=== PATIENT | female | born 1980 | race Caucasian/White ===

== ENCOUNTER 2017-01-19 10:14 | Emergency (ER) | payer MEDICAID ==
[~2017-01-19] VITALS: Ht 175.3 cm; Wt 96.8 kg
[~2017-01-19 10:14] MED LIST: BACL-19 PO; CYCL10TA50; HYDR-3138; IRON1TAB62 PO; PANT20TA3 PO; PHEN15CA PO; SULF1TAB24; TRAM50TA2; TRAM50TA2 PO
[2017-01-19 10:20] VITALS: BP 127/84
[2017-01-19] MEDS ORDERED: CARBAMIDE PEROXIDE EAR DROPS 6.5%, 15ML EACH EAR ONE (11:30)
== END 2017-01-19 12:12 | disposition home or self-care (01) ==
LOC: ED 12:03
DX: H66.001 Acute suppurative otitis media without spontaneous rupture of ear drum, right ear (principal); H60.91 Unspecified otitis externa, right ear; H61.21 Impacted cerumen, right ear
CPT/HCPCS: 99283

== ENCOUNTER 2017-06-21 15:00 | Emergency (ER) | payer MEDICAID ==
[~2017-06-21] VITALS: Ht 175.3 cm; Wt 97.0 kg
[~2017-06-21 15:00] MED LIST changes: -HYDR-3138; +HYDR-3237
[2017-06-21 15:05] VITALS: BP 128/84
[2017-06-21] MEDS ORDERED: DIAZEPAM 5 MG TABLET PO ONE (15:30)
[2017-06-21] MEDS ORDERED: HYDROmorphone 1 MG/ML, 1ML IM ONE (15:30)
[2017-06-21] MEDS ORDERED: HYDROmorphone 1 MG/ML, 1ML ONE (16:03)
[2017-06-21] MEDS ORDERED: DIAZEPAM 5 MG TABLET ONE (16:04)
== END 2017-06-21 16:42 | disposition home or self-care (01) ==
LOC: ED 16:34
DX: S39.012A Strain of muscle, fascia and tendon of lower back, initial encounter (principal); M54.42 Lumbago with sciatica, left side; M54.41 Lumbago with sciatica, right side; M47.896 Other spondylosis, lumbar region; F17.210 Nicotine dependence, cigarettes, uncomplicated; M41.9 Scoliosis, unspecified; W19.XXXA Unspecified fall, initial encounter; Y93.89 Activity, other specified; Y99.8 Other external cause status; Y92.89 Other specified places as the place of occurrence of the external cause
CPT/HCPCS: 72110; 96372; 99284; J1170

== ENCOUNTER 2018-03-07 10:51 | Emergency (ER) | payer MEDICAID ==
[~2018-03-07] VITALS: Ht 175.3 cm; Wt 101.0 kg
[~2018-03-07 10:51] MED LIST changes: -PHEN15CA PO; +PHEN15CA2 PO
[2018-03-07 11:27] VITALS: BP 124/80
== END 2018-03-07 11:32 | disposition home or self-care (01) ==
LOC: ED 11:14
DX: B00.1 Herpesviral vesicular dermatitis (principal); L01.01 Non-bullous impetigo; F17.200 Nicotine dependence, unspecified, uncomplicated
CPT/HCPCS: 99283

== ENCOUNTER 2019-03-20 07:42 | Emergency (ER) | payer MEDICAID ==
[~2019-03-20] VITALS: Ht 175.3 cm; Wt 99.6 kg
--- NOTE | 2019-03-20 08:24 | NUR ---
FIRST CONTACT WITH PT. PT REPORTS DIZZINESS FOR ABOUT A MONTH AND "DECIDED IT WAS TIME TO GET CHECKED OUT". JHONY. LORRI.
[2019-03-20] MEDS ORDERED: MECLIZINE CHEWABLE 25 MG TAB PO ONE (08:30)
[2019-03-20] MEDS ORDERED: ONDANSETRON ODT 4 MG PO ONE (08:30)
--- NOTE | 2019-03-20 08:41 | NUR ---
URINE REQUESTED FROM PT, SHE STATES SHE CAN'T URINATE RIGHT NOW. PT GIVEN UA CUP AND INSTRUCTIONS.
[2019-03-20] MEDS ORDERED: MECLIZINE CHEWABLE 25 MG TAB ONE (08:42)
[2019-03-20] MEDS ORDERED: ONDANSETRON ODT 4 MG ONE (08:42)
[2019-03-20 08:43] LABS: BASOPHILS % (AUTO) 1 % (0-1); EOSINOPHILS # (AUTO) 0.15 x10^3/uL (0-0.4); EOSINOPHILS % (AUTO) 2 % (1-7); LYMPHOCYTES # (AUTO) 2.41 x10^3/uL (1-3.4); LYMPHOCYTES % (AUTO) 32 % (22-44); MD NO; MEAN CORPUSCULAR HEMOGLOBIN 34.2 pg (27.0-34.8); MEAN CORPUSCULAR HGB CONC 32.9 g/dL (32.4-35.8); MEAN CORPUSCULAR VOLUME 103.9 fL (80-100); MEAN PLATELET VOLUME 9.5 fL (7.4-10.4); MONOCYTES # (AUTO) 0.42 x10^3/uL (0.2-0.8); MONOCYTES % (AUTO) 6 % (2-9); NEUTROPHILS # (AUTO) 4.47 x10^3/uL (1.8-6.8); NEUTROPHILS % (AUTO) 59 % (42-75); PLATELET COUNT 245 x10^3/uL (130-400); RED BLOOD COUNT 3.99 x10^6/uL (3.82-5.3); RED CELL DISTRIBUTION WIDTH 13.6 % (9.6-15.2)
--- NOTE | 2019-03-20 08:46 | NUR ---
Patient is resting comfortably in bed. Vital Signs within normal limits. Urine collected, small sample. Will walk to lab.
[2019-03-20 08:48] LABS: ALANINE AMINOTRANSFERASE 16 U/L (12-78); ALBUMIN 3.5 g/dL (3.4-5.0); ANION GAP 6 mmol/L (5-15); CALCIUM 8.7 mg/dL (8.5-10.1); CHLORIDE 109 mmol/L (98-107)
[2019-03-20 08:51] LABS: ALKALINE PHOSPHATASE 64 U/L (45-117); BILIRUBIN,TOTAL 0.6 mg/dL (0.2-1.0); CREATININE 0.99 mg/dL (0.55-1.02); TOTAL PROTEIN 6.9 g/dL (6.4-8.2)
[2019-03-20 09:17] LABS: HCG UR SG 1.027 (1.003-1.030)
--- NOTE | 2019-03-20 09:55 | NUR ---
PT DENIES ANY NEEDS. PT REQUESTS INFORMATION HOW TO GET MED RECORDS, INFO GIVEN.
[2019-03-20 09:56] LABS: MICROSCOPIC AUTO
[2019-03-20 10:02] LABS: CULTURE INDICATED? NO
[2019-03-20 10:38] VITALS: BP 110/67
--- NOTE | 2019-03-20 10:40 | NUR ---
DPatient/Caregiver given discharge instructions and they have confirmed that they understand the instructions. Patient ambulatory with steady gait.
== END 2019-03-20 10:39 | disposition home or self-care (01) ==
LOC: ED 08:43
DX: H81.399 Other peripheral vertigo, unspecified ear (principal); H81.10 Benign paroxysmal vertigo, unspecified ear; Z88.1 Allergy status to other antibiotic agents; Z88.8 Allergy status to other drugs, medicaments and biological substances
CPT/HCPCS: 36415; 80053; 81001; 81025; 85025; 93005; 99284; Q0162

== ENCOUNTER 2020-02-13 15:01 | Emergency (ER) | payer MEDICAID ==
[~2020-02-13] VITALS: Ht 175.3 cm; Wt 98.4 kg
[2020-02-13 15:11] VITALS: BP 124/68
--- NOTE | 2020-02-13 15:45 | NUR ---
EEG TECH: PT TO ROOM FROM [facility].
[2020-02-13] MEDS ORDERED: LIDOCAINE-MPF 1%, 5ML ONE (16:25)
[2020-02-13] MEDS ORDERED: LIDOCAINE-MPF 1%, 5ML INFIL ONE (16:30)
[2020-02-13] MEDS ORDERED: SULFAMETH./TRIMETHOPRIM DS 800MG/160MG TABLET PO ONE (17:00)
[2020-02-13] MEDS ORDERED: CEPHALEXIN 500 MG CAPSULE PO ONE (17:00)
== END 2020-02-13 17:34 | disposition home or self-care (01) ==
LOC: ED 16:50
DX: L02.31 Cutaneous abscess of buttock (principal); F17.200 Nicotine dependence, unspecified, uncomplicated
CPT/HCPCS: 10060; 99284

== ENCOUNTER 2021-03-01 05:59 | Emergency (ER) | payer MEDICAID ==
[~2021-03-01] VITALS: Ht 175.3 cm; Wt 95.9 kg
[~2021-03-01 05:59] MED LIST changes: -PANT20TA3 PO; +PANT20TA4 PO; +SULF-23; -SULF1TAB24
[2021-03-01] MEDS ORDERED: ONDANSETRON 2MG/ML, 2ML IVPush ONE ×2 (06:30→08:30)
[2021-03-01] MEDS ORDERED: SODIUM CHLORIDE FLUSH 10ML SYR IVF ONE (06:30)
[2021-03-01] MEDS ORDERED: MORPHINE SULFATE 4 MG/ML, 1ML IVPush PRN (06:30)
[2021-03-01] MEDS ORDERED: MORPHINE SULFATE 4 MG/ML, 1ML ONE ×2 (06:33→08:11)
[2021-03-01] MEDS ORDERED: ONDANSETRON 2MG/ML, 2ML ONE ×2 (06:33→08:10)
--- NOTE | 2021-03-01 06:50 | NUR ---
REPORT FROM CESAR LANCASTER
--- NOTE | 2021-03-01 06:55 | NUR ---
PT C/O OR RLQ PAIN THAT RADIATES TO THE RIGHT FLANK AREA. DENIES DIFFICULTY OR PAINFUL URINATION. PT AT BEDSIDE. PT ATTACHED TO MONITORS, VSS. NADN. PAIN7/10. MEDICATEDPER EMAR. BED IN LOW POSITION, RAILS ENGAGED. CALL LIGHT ON LAP. TM
--- NOTE | 2021-03-01 06:57 | NUR ---
GAVE REPORT TO CARITO GUERRERO. TRANSFER OF CARE.
[2021-03-01 07:00] LABS: BASOPHILS % (AUTO) 1 % (0-1); EOSINOPHILS % (AUTO) 3 % (1-7); LYMPHOCYTES % (AUTO) 36 % (22-44); MEAN CORPUSCULAR HEMOGLOBIN 35.7 pg (27.0-34.8); MEAN CORPUSCULAR HGB CONC 34.1 g/dL (32.4-35.8); MEAN PLATELET VOLUME 9.2 fL (7.4-10.4); MONOCYTES % (AUTO) 8 % (2-9); NEUTROPHILS % (AUTO) 52 % (42-75); PLATELET COUNT 220 x10^3/uL (130-400); RED BLOOD COUNT 3.98 x10^6/uL (3.82-5.3); RED CELL DISTRIBUTION WIDTH 13.6 % (9.6-15.2)
--- NOTE | 2021-03-01 07:07 | NUR ---
PT SITTING ON JACQUE NAVAS/LORRI. CALL LIGHT WITHIN REACH. FAMILY AT BS. NO NEEDS AT THIS TIME. PT UPDATED ON POC
[2021-03-01 07:11] LABS: ALANINE AMINOTRANSFERASE 18 U/L (12-78); ALBUMIN 3.3 g/dL (3.4-5.0); ANION GAP 5 mmol/L (5-15); CALCIUM 8.6 mg/dL (8.5-10.1); CHLORIDE 107 mmol/L (98-107)
[2021-03-01 07:16] LABS: ALKALINE PHOSPHATASE 67 U/L (45-117); BILIRUBIN,TOTAL 0.8 mg/dL (0.2-1.0); TOTAL PROTEIN 6.8 g/dL (6.4-8.2)
--- NOTE | 2021-03-01 07:23 | NUR ---
pt to ct
--- NOTE | 2021-03-01 07:30 | NUR ---
PT BACK FROM CT, CONNECTED TO MONITORS. CALL LIGHT WITHIN REACH. FAMILY AT BS
[2021-03-01 07:55] LABS: MICROSCOPIC AUTO
--- NOTE | 2021-03-01 08:36 | NUR ---
PT TO ULTRASOUND
[2021-03-01 08:42] VITALS: BP 114/63
--- NOTE | 2021-03-01 08:55 | NUR ---
PT BACK FROM US, CONNECTED TO MONITORS. CALL LIGHT WITHIN REACH
--- NOTE | 2021-03-01 09:23 | NUR ---
REPORT OF PT FROM CESAR ARZATE AND ASSUMING CARE OF PT AT THIS TIME.
[2021-03-01 10:07] LABS: MICROSCOPIC NOT IND
--- NOTE | 2021-03-01 10:33 | NUR ---
piv d/c with tip intact. Patient given discharge instructions and they have confirmed that they understand the instructions. Patient ambulatory with steady gait to registration desk for d/c home. pt provided with work note. pt denies any other needs pertaining to this visit.
== END 2021-03-01 10:36 | disposition home or self-care (01) ==
LOC: ED 07:18
DX: R10.31 Right lower quadrant pain (principal); R11.2 Nausea with vomiting, unspecified; F17.200 Nicotine dependence, unspecified, uncomplicated
CPT/HCPCS: 36415; 74176; 76830; 80053; 81001; 81003; 83690; 84703; 85025; 87086; 96374; 96375; 96376; 99285; J2270; J2405